=== PATIENT | male | born 1980 | race Caucasian/White ===

== ENCOUNTER 2021-08-08 04:59 | Emergency (ER) | payer BC ==
[2021-08-08] MEDS ORDERED: EPIPEN 2-P0.3 MG/0.3 INJ (07:05)
[2021-08-08] MEDS ORDERED: PEPCID40 MG PO (07:05)
[2021-08-08] MEDS ORDERED: BENADRYL 50MG C50 MG PO (07:05)
[2021-08-08] MEDS ORDERED: PREDNISONE 20 M20 MG PO (07:05)
== END 2021-08-08 07:22 | disposition home or self-care (01) ==
LOC: ER1 04:59
DX: L50.0 Allergic urticaria (principal); I10 Essential (primary) hypertension; Z79.899 Other long term (current) drug therapy
CPT/HCPCS: 96372; 99282; J1100